=== PATIENT | male | born 1970 | race Caucasian/White ===

== ENCOUNTER 2021-02-22 20:29 | Emergency (ER) | payer BC, SELFPAY ==
--- NOTE | ~2021-02-22 | XR_ITS ---
EXAMINATION: XR shoulder RT min 2V INDICATION: Right shoulder pain TECHNIQUE: Three views of the right shoulder are submitted. COMPARISON: None FINDINGS: There is anterior and inferior dislocation of the humeral head with respect to the glenoid. No definite fracture is identified. The acromioclavicular joint is unremarkable. Soft tissues are un remarkable. IMPRESSION: 1. Anterior and inferior dislocation of the right humeral head with respect to the glenoid. Reviewed, dictated and finalized at location A.
--- NOTE | ~2021-02-22 | XR_ITS ---
EXAMINATION: XR shoulder RT min 2V INDICATION: Post reduction TECHNIQUE: Two views of the right shoulder are submitted. COMPARISON: None FINDINGS: The previously described glenohumeral dislocation has been reduced. Bone alignment is arjun l. There is questionable depression at the superolateral aspect of the humeral head. Soft tissues are unremarkable. IMPRESSION: 1. Reduced glenohumeral dislocation. 2. Possible Hill-Sachs fracture. Reviewed, dictated and finalized at location A.
[2021-02-22 20:48] VITALS: BP 138/90; PULSE 79; RESP 18; TEMP 36.6; O2SAT 96
--- NOTE | 2021-02-22 20:55 | ED.UPPEXIN ---
HPI - Extremity Injury (Upper) General Chief Complaint: Extremity Injury, Upper Stated Complaint: fall, shoulder dislocation Time Seen by Provider: 02/22/21 20:31 History of Present Illness HPI narrative: 50 yo male w/ no significant medical history presents to the ED for a shoulder injury. He slipped and fell onto outstretched right hand. He reports feeling a pop and having severe pain in the right shoulder. He has significantly limited ROM. distal motor and sensory intact. He denies any other pain or injury. Related Data Home Medications Medication Instructions Recorded Confirmed cholecalciferol (vitamin D3) 25 1,000 unit PO DAILY 11/08/19 mcg (1,000 unit) capsule lactobacillus rhamnosus R0011 20 cell PO 11/08/19 billion cell capsule Allergies Allergy/AdvReac Type Severity Reaction Status Date / Time Penicillins Allergy Unknown Rash Verified 02/22/21 20:53 Review of Systems Review of Systems: All systems reviewed & are unremarkable except as noted in HPI and below Constitutional: Constitutional: Denies chills, Denies fever(s) and Denies weakness Cardiovascular: Cardiovascular: Denies chest pain Respiratory: Respiratory: Denies dyspnea Gastrointestinal: Gastrointestinal: Denies nausea Neurologic: Denies dizziness and Denies weakness [facility] Past Medical History Medical History (Updated 02/23/21 @ 04:13 by Elbert Morataya MD) Diverticulitis Social History Social History Smoking status: Heavy tobacco smoker Alcohol intake: current Substance use type: marijuana Gender identity (if verbalized by the patient): Male Sexual Orientation (if Verbalized by the Patient): Straight or Heterosexual Exam Const: General: no acute distress and alert Orientation/consciousness: patient oriented x3 HENMT: Head: normal to inspection Neck: Neck: normal visual inspection Resp: Effort & Inspection: normal respiratory effort Auscultation: clear to auscultation bilaterally Cardio: Rate: regular rate Rhythm: regular rhythm Skin: General skin exam: normal color Wounds: no wounds Neuro: General: patient oriented x3, moves all extremities and no focal motor deficits Other: distal motor and sensory intact in RUE. sensation intact over deltoid Extrem: Other: obvious deformity to right shoulder. held in partial adduction Course Vital Signs Vital signs: Vital Signs Temperature 36.6 C 02/22/21 20:48 Pulse Rate 79 02/22/21 20:48 Respiratory Rate 18 02/22/21 20:48 Blood Pressure 138/90 05/21/21 20:48 Pulse Oximetry 96 02/22/21 20:48 Temperature 36.6 C 02/22/21 20:48 Pulse Rate 85 02/22/21 22:05 Respiratory Rate 17 02/22/21 22:05 Blood Pressure 132/94 H 02/22/21 22:05 Pulse Oximetry 98 02/22/21 22:05 Procedures Orthopedic Joint Reduction Joint #1: Side: right Joint Reduction Location: shoulder Analgesia: hematoma block Pre-Procedure Neuro Vascular Exam: normal Local Anesthesia: lidocaine 1% Amount of anesthesic used (mL): 15 Shoulder Technique Used (if applicable): other (gentle in-line traction on humerus) Post-reduction neuro exam: intact Post-reduction vascular: intact Post Reduction X-Ray Obtained: Yes Post Reduction X-Ray Results: reduced Splint Applied: Yes Patient Tolerated Procedure: well MDM - Extremity Injury (Upper) MDM Narrative Medical decision making narrative: shoulder reduced. Differential Diagnosis Differential diagnosis: Likely dislocation of shoulder and fracture of humerus Medical Records Attestation: I reviewed the patient's medical records. Imaging Data Radiologist's impression: ITS Impressions Shoulder X-Ray 02/22/21 21:07 IMPRESSION: 1. Anterior and inferior dislocation of the right humeral head with respect to the glenoid. Shoulder X-Ray 02/22/21 22:03 IMPRESSION: 1. Reduced glenohumeral dislocation. 2. Possible Hill-Sachs
[2021-02-22] MEDS: HYDROmorphone HCL INJ (*CRX) 1 MG/ML SYR IV PUSH (21:10)
[2021-02-22] MEDS: fentaNYL CITRATE INJ (*CRX) 100 MCG/2 ML VIAL IV PUSH (21:23)
--- NOTE | 2021-02-22 21:23 | PC.NURSE ---
GUERDAP Rafia at bedside for reduction of left shoulder.
[2021-02-22 21:28] VITALS: BP 140/96; PULSE 95; RESP 16; O2SAT 97
[2021-02-22 22:05] VITALS: BP 132/94; PULSE 85; RESP 17; O2SAT 98
== END 2021-02-22 22:21 | disposition home or self-care (01) ==
PROVIDERS: Emergency Provider Emergency Medicine; PCP Family Medicine
DX: S43.014A Anterior dislocation of right humerus, initial encounter (principal); S43.034A Inferior dislocation of right humerus, initial encounter; F17.200 Nicotine dependence, unspecified, uncomplicated; W01.0XXA Fall on same level from slipping, tripping and stumbling without subsequent striking against object, initial encounter
CPT/HCPCS: 23650; 73030; 96374; 96375; 99285; J1170; J3010

== ENCOUNTER → 2023-07-13 11:48 | Outpatient (CLI) | payer BC, SELFPAY ==
--- NOTE | ~2023-07-13 | CT_ITS ---
EXAMINATION: CT lung screening DATE: 07/13/2023 12:01 INDICATION: Personal history of nicotine dependence. TECHNIQUE: Computed tomography (CT) of the chest was performed without intravenous contrast. The dose -length product was 144.58 mGy-cm. Automated exposure control and iterative reconstruction technique were employed. COMPARISON: None FINDINGS: There is mediastinal lymphadenopathy, likely reactive. Heart size is normal. No significant pleural or pericardial effusion. The upper abdomen is unremarkable. There is emphysema. No endobronc hial lesions. There is evidence for chronic granulomatous disease. There is mild lower lobe interlobu lar septal thickening, right greater than left, nonspecific. There are small pulmonary nodules measur ing 2 mm or less predominantly in the upper lobes. IMPRESSION: 1. Lung-RADS category 2: Benign appearance or behavior. Continue annual screening with noncontrast lo w-dose chest CT in 12 months. Reviewed, dictated and finalized at location B. IMPRESSION: 1. Lung-RADS category 2: Benign appearance or behavior. Continue annual screeni ng with noncontrast low-dose chest CT in 12 months.
== END ==
PROVIDERS: PCP Family Medicine; Visit Provider Family Medicine
DX: Z12.2 Encounter for screening for malignant neoplasm of respiratory organs (principal); Z87.891 Personal history of nicotine dependence
CPT/HCPCS: 71271